=== PATIENT | male | born 1965 | race American Indian/Alaskan Native ===

== ENCOUNTER 2018-02-07 08:50 | Outpatient (CLI) | payer OTHER ==
[2018-02-07] MEDS ORDERED: PROVENTIL IH ONE (09:51)
== END 2018-02-07 08:51 | disposition home or self-care (01) ==
LOC: PF 08:50
PROVIDERS: ATTEND Internal Medicine
DX: Z02.71 Encounter for disability determination (principal); J98.4 Other disorders of lung; R06.02 Shortness of breath; Z87.891 Personal history of nicotine dependence
CPT/HCPCS: 94060